=== PATIENT | female | born 1995 | race Hispanic/Latino ===

== ENCOUNTER 2019-10-31 | Emergency (ER) | payer MEDICAID | END 2019-10-31 16:25 | disposition home or self-care (01) | DX: S82.832A Other fracture of upper and lower end of left fibula, initial encounter for closed fracture (principal); S93.402A Sprain of unspecified ligament of left ankle, initial encounter; Z98.890 Other specified postprocedural states; X50.1XXA Overexertion from prolonged static or awkward postures, initial encounter; Y93.44 Activity, trampolining; Y92.89 Other specified places as the place of occurrence of the external cause; Y99.8 Other external cause status ==

== ENCOUNTER 2021-12-07 06:05 | Day surgery (SDC) | payer MEDICAID ==
[2021-12-06 13:38] LABS: BASOPHILS % (AUTO) 0.4 % (0.0-5.0); EOSINOPHILS % (AUTO) 1.6 % (0.0-8.0); HEMATOCRIT 41.7 % (36-48); LYMPHOCYTES % (AUTO) 27.8 % (21.0-51.0); MEAN CORPUSCULAR HEMOGLOBIN 30.4 pg (27.0-33.0); MEAN CORPUSCULAR HGB CONC 32.9 g/dL (32.0-36.0); MEAN CORPUSCULAR VOLUME 92.7 fL (79-99); MONOCYTES % (AUTO) 4.3 % (3.0-13.0); NEUTROPHILS % (AUTO) 65.5 % (40.0-77.0); PLATELET COUNT (AUTO) 268 K/uL (130-400); RED CELL DISTRIBUTION WIDTH 13.6 % (11.0-15.5); WHITE BLOOD COUNT (AUTO) 6.7 K/uL (4.8-10.8)
[2021-12-06 13:46] VITALS: BP 119/80
[~2021-12-07] VITALS: Ht 160 cm; Wt 80.2 kg
[2021-12-07] VITALS (16 sets, daily range): BP systolic 107–172; BP diastolic 56–86
[2021-12-07] MEDS: CEFAZOLIN SODIUM 1 GM VIAL IVP SCH ×2 (06:00→09:30)
[~2021-12-07 06:05] MED LIST: LACTATED RINGERS 1000ML 1,000 ML IV SCH; LEVO100C4 PO; TOPI100T31 PO
[2021-12-07] MEDS ORDERED: MIDAZOLAM HCL 1 MG/ML 2ML VIAL ONE (09:22)
[2021-12-07] MEDS ORDERED: PROPOFOL 10 MG/ML 20ML VIAL IV ONE (09:23)
[2021-12-07] MEDS ORDERED: FENTANYL CITRATE PF 50 MCG/1 ML 2ML VIAL ONE (09:23)
[2021-12-07] MEDS ORDERED: SILVER NITRATE APPLICATOR 1 SWAB TP ONE (10:07)
== END 2021-12-07 11:40 | disposition home or self-care (01) ==
LOC: DAH 06:05
PROVIDERS: ATTEND Obstetrics & Gynecology
DX: Z30.432 Encounter for removal of intrauterine contraceptive device (principal); N81.4 Uterovaginal prolapse, unspecified; E03.9 Hypothyroidism, unspecified; Z79.890 Hormone replacement therapy
CPT/HCPCS: 84703; 85025; 86850; 86900; 86901; 87426; 36415; 58120; 58301; A6260; A4351; A4606; A4355; J7120; J3010; J0690; J2250; J3490; A4930; A4215; A4223; A4213; A4222; A4221; A4663; J7030; A4600; A4510; J2704